=== PATIENT | male | born 1975 | race Caucasian/White ===

== ENCOUNTER → 2017-12-23 15:16 | Outpatient (CLI) | payer BC, SELFPAY ==
--- NOTE | 2017-12-23 15:20 | XR_ITS ---
EXAM: XR cervical spine 4V HISTORY: ITS.REASON: NECK PAIN ORDERING PHYSICIAN: Dangelo Dudley MD PATIENT AGE: 42 years COMPARISON: None FINDINGS: Normal alignment. No fracture or dislocation. No lytic or blastic change. No significant degenerative change. The disc spaces are preserved. IMPRESSION: Negative cervical spine
--- NOTE | 2017-12-23 15:20 | XR_ITS ---
EXAM: XR lumbar spine min 4V HISTORY: ITS.REASON: LBP W/O SCIATICA ORDERING PHYSICIAN: Dangelo Dudley MD PATIENT AGE: 42 years COMPARISON: None FINDINGS: Normal alignment. No fracture or dislocation. No lytic or blastic change. Small anterior osteophytes are present at L3 and L4. The disc spaces are preserved. IMPRESSION: Minimal degenerative change, no acute finding.
== END ==
PROVIDERS: PCP Family Medicine; Visit Provider Family Medicine
DX: M54.5 Low back pain (principal); M54.2 Cervicalgia
CPT/HCPCS: 72050; 72110

== ENCOUNTER → 2018-01-15 10:25 | Outpatient (CLI) | payer BC, SELFPAY ==
--- NOTE | 2018-01-15 10:30 | MR_ITS ---
MR lumbar spine wo con, MR 3-d myelogram/MRCP Ordering Physician: Chayito Shipman Patient Age: 42 years: Male HISTORY: ITS.REASON: LOW BACK PAIN WITH SCIATICA Patient with sporadic low back pain. Low back pain midline bilateral leg. Right leg numbness and tingling to big toe. Symptoms one year.. . Prior history of ureteral calculus on right 2015 TECHNIQUE: MRI lumbar spine without contrast Sagittal STIR, T1, T2, axial T1 and T2. On 1.5T Siemens wide bore MRI. 3-D MR myelogram image set obtained & performed on MRI workstation. Additional sagittal thin section T2 weighted dataset obtained from this latter acquisition as well (---76 CPT) COMPARISON : CT abdomen and pelvis January 2015 5 view lumbar spine series December 23, 2017 FINDINGS The vertebral bodies are intact with no compression fracture or lesion. Exploratory laparoscopy the disc spaces are well hydrated well-maintained throughout.. No prominent disc protrusion or disc herniation L5/S1. Disc intact. Normal. Facets intact with slightly generous facets bilateral L4/5. Disc intact facets intact with only minor L4/5 disc spaces well-maintained L3/4 disc intact. Underlying modest AP dimension the neural foramen with slightly generous disc contour towards foramen but no significant bulge or protrusion L2/3 disc intact. Unremarkable.. L1/2 disc intact T12/L1 disc intact... T11/ 12 disc intact 3-D MRI myelogram image set appears satisfactory . No significant epidural indentation Symmetrical appearance nerve root sleeves IMPRESSION: ...... Negative MRI lumbar spine. No disc herniation.. No significant appearing disc bulge or protrusion . Only note perhaps slight Modest AP dimension neuroforamen at L3/4.- However extending nerve roots sleeves appear satisfactory bilaterally
--- NOTE | 2018-01-15 10:30 | MR_ITS ---
MR cervical spine wo con Ordering Physician: Chayito Shipman Patient Age: 42 years: Male HISTORY: ITS.REASON: NECK PAIN Neck pain. Arm pain left arm and hand pain. Numbness. Tingling. Symptoms several years. TECHNIQUE: Sagittal STIR, T1, T2, axial T1 and T2. On 1.5T Siemens wide bore MRI. 3-D MR myelogram image set obtained & performed on MRI workstation. Additional sagittal thin section T2 weighted dataset obtained from this latter acquisition as well (---76 CPT) COMPARISON :Five-view cervical spine series from 12/23/2017. FINDINGS Cranial cervical junction is WNL- slightly AP volume but adequate at 14.5 mm mm at the level of C1 C2/3 disc intact C3/4. Overall appears satisfactory. There may be some scant early posterior ridging and generous disc contour of but overall appears intact, WNL. C4/5, C5 C6 C6/7 disc intact and unremarkable well-hydrated. Neural foramen widely patent. Vertebral bodies with normal alignment and intact. . 3-D MRI myelogram image set appears normal. Nerve root sleeves a satisfactory at all levels.. No significant epidural indentation upon thecal sac IMPRESSION: Overall Negative C-spine MR. C-spine intact with no significant findings.
== END ==
PROVIDERS: PCP Nurse Practitioner; Visit Provider Nurse Practitioner
DX: M54.2 Cervicalgia (principal); M54.5 Low back pain
CPT/HCPCS: 72141; 72148; 76376

== ENCOUNTER 2019-02-03 11:32 | Outpatient (CLI) | payer BC, SELFPAY ==
[2019-02-03 11:44] VITALS: BMI 30.7
[2019-02-03 12:09] LABS: Basophils # 0.1 K/mm3 (0-0.2); Basophils % 0.8 % (0.1-2.0); Eosinophils # 0.2 K/mm3 (0.0-0.4); Eosinophils % 3.4 % (0.1-12.0); Hematocrit 38.6 % (42.0-52.0); Hemoglobin 12.8 g/dL (14.1-18.0); Lymphocytes # 1.8 K/mm3 (0.7-4.5); Lymphocytes % 27.9 % (10-50); Mean Corpuscular Hemoglobin 28.8 pg (27.0-31.2); Mean Corpuscular Volume 87.1 fl (80-94); Mean Platelet Volume 7.7 fl (7.4-10.4); Monocytes # 0.5 K/mm3 (0.1-1.0); Monocytes % 7.1 % (1.7-9.3); Neutrophils # 3.8 K/mm3 (1.8-7.8); Neutrophils % 60.8 % (37.0-80.0); Platelet Count 370 K/mm3 (142-424); Red Blood Count 4.43 M/mm3 (4.60-6.20); Red Cell Distribution Width 13.6 % (11.5-17.5); White Blood Count 6.3 K/mm3 (4.8-10.8)
[2019-02-03 12:10] VITALS: BP 112/74; PULSE 72; RESP 20; TEMP 36.9; O2SAT 98
[2019-02-03 12:36] LABS: Alanine Aminotransferase 75 U/L (12-78); Albumin Level 3.9 gm/dL (3.4-5.0); Alkaline Phosphatase 121 U/L (46-116); Anion Gap 11.5 mEq/L (5-15); Aspartate Amino Transferase 36 U/L (15-37); Bilirubin,Total 0.4 mg/dL (0.2-1.0); Blood Urea Nitrogen 16 mg/dL (7-18); CKMB Relative Index 0.9 U/L (0-4.0); Calcium 9.4 mg/dL (8.5-10.1); Carbon Dioxide 29 mmol/L (21.0-32.0); Chloride 99 mmol/L (98-107); Chol/HDL Ratio 2.6 (1-3.5); Cholesterol 172 mg/dL (140-200); Creatine Kinase 120 U/L (39-308); Creatine Kinase MB 1.1 ng/ml (0.0-3.6); Creatinine Clearance Estimated 121 mL/min (50-200); Creatinine,Serum 1.26 mg/dL (0.70-1.30); Estimated Glomerular Filt Rate 62 ml/min (>60); GFR (African American) 75 ML/MIN (>60); Globulin 3.8 gm/dl (1.3-3.2); Glucose 109 mg/dL (74-106); HDL Cholesterol 65 mg/dL (27-67); LDL Cholesterol 93 mg/dL (0-130); Potassium 3.5 mmoL/L (3.5-5.1); Sodium 136 mmol/L (136-145); T4 (Thyroxine) 9.1 ug/dl (4.7-13.3); Thyroid Stimulating Hormone 2.41 uIU/ml (0.358-3.740); Total Protein,Serum 7.7 gm/dL (6.4-8.2); Triglycerides 72 mg/dL (30-200); Troponin I < 0.02 ng/ml (0.00-0.06); VLDL Cholesterol 14 mg/dL (0-40)
[2019-02-03 12:45] VITALS: BP 125/84; PULSE 68; RESP 20; TEMP 36.9; O2SAT 95
[2019-02-03 13:15] VITALS: BP 125/87; PULSE 68; RESP 20; TEMP 37.1; O2SAT 95
--- NOTE | 2019-02-03 16:35 | XR_ITS ---
PROCEDURE: XR CHEST 2V CLINICAL HISTORY: elevated alk phos COMPARISON: No exams were available for comparison FINDINGS: The cardiomediastinal silhouette and pulmonary vascularity are within normal limits. The lungs are clear without infiltrates, suspicious nodules, or pleural effusions. No acute bony abnormalities. IMPRESSION: No acute findings. Dictated by: Vignesh Keyes MD 02/03/2019 17:15 Electronically signed by Vignesh Keyes MD in [place] 02/03/2019 17:15
== END 2019-02-03 13:15 | disposition home or self-care (01) ==
PROVIDERS: PCP Emergency Medicine; Visit Provider Nurse Practitioner Family
DX: E86.0 Dehydration (principal); R74.8 Abnormal levels of other serum enzymes
CPT/HCPCS: 71046; 80053; 80061; 82550; 82553; 84436; 84443; 84484; 85025; 96360; 96375; J2405

== ENCOUNTER → 2019-05-04 15:30 | Outpatient (CLI) | payer BC, SELFPAY ==
[2019-05-04 20:41] LABS: Alanine Aminotransferase 80 U/L (21-72); Albumin Level 4.4 g/dL (3.4-5.0); Albumin/Globulin Ratio 1.6 (1.1-1.8); Alkaline Phosphatase 97 U/L (46-116); Anion Gap 13.1 mEq/L (5-15); Aspartate Amino Transferase 32 U/L (15-37); Bilirubin,Total 0.4 mg/dL (0.2-1.0); Blood Urea Nitrogen 15 mg/dL (7-18); Calcium 9.2 mg/dL (8.5-10.1); Carbon Dioxide 29 mmol/L (21.0-32.0); Chloride 103 mmol/L (98-107); Creatinine,Serum 1.19 mg/dL (0.70-1.30); Estimated Glomerular Filt Rate 66 ml/min (>60); GFR (African American) 80 ML/MIN (>60); Globulin 2.7 gm/dl (1.3-3.2); Glucose 108 mg/dL (74-106); Potassium 4.1 mmoL/L (3.5-5.1); Sodium 141 mmol/L (137-145); Total Protein,Serum 7.1 g/dL (6.4-8.2)
[2019-05-05 17:07] LABS: Hemoglobin A1C 5.8 % (0.0-7.0)
== END ==
PROVIDERS: Physician Assistant; Visit Provider Nurse Practitioner Family
DX: R74.8 Abnormal levels of other serum enzymes (principal); R73.9 Hyperglycemia, unspecified
CPT/HCPCS: 36415; 80053; 83036

== ENCOUNTER → 2020-01-24 07:01 | Outpatient (CLI) | payer BC, SELFPAY ==
--- NOTE | 2020-01-24 07:02 | CA_ITS ---
APPROVED REPORT Exam: Exercise Treadmill Technologist: Kristie Diane Ht: 6 ft 4 in Wt: 261 lbs BSA: 2.48 m2 HR: 77 bpm BP: 143/91 mmHg Indications: Chest pain, Shortness of Air Medical History Medications: Amlodipine,,,,, Aspirin,,,,, Propranolol,,,,, Pravastatin,,,,, HCTZ,,,,, Albuterol,,,,, Esomeprazole,,,,, Stress Test Details Test: Roberto HR Resting HR: 84 bpm Max Heart Rate (APMHR): 175 bpm Max HR Achieved: 169 bpm Target HR (85% APMHR): 148 bpm % of APMHR: 96 Recovery HR: 104 bpm BP Resting BP: 143.0/91.0 mmHg Max BP: 175.0/85.0 mmHg Recovery BP: 142.0/88.0 mmHg ECG Clinical Exercise duration: 07:15 min Highest Stage Achieved: Exercise capacity: 10.1 METs Stress ECG Conclusion Resting ECG: Normal sinus rhythm, right axis deviation, ST-T abnormalities inferiorly ( possible strain pattern). Patient exercised 7:15 on Roberto Protocol. Test stopped due to shortness of air, fatigue. Symptoms: Burning chest discomfort. Arrhythmias/Ectopy: Rare PVC ST-T Changes: Exaggeration of baseline ST-T abnormalities inferiorly. 1mm horizontal ST depression laterally. Conclusion: Non-diagnostic GXT due to baseline EKG abnormalities. Myoview images reported separately. Test Summary . Standing . . . . . . Myoview Injected . . Stop exercise at 07:15 . . . . . . Electronically signed by : Abhilash Patel, 01/25/2020 05:44:12
--- NOTE | 2020-01-24 07:02 | CA_ITS ---
APPROVED REPORT EXAM: Comprehensive 2D, Doppler, and color-flow Echocardiogram Rental Sales Agent: Jacki Escobar RVT Ht: 6 ft 4 in Wt: 261lbs BSA: 2.48 BP: 149/99 mmHg Indications: CP,SOA,HTN,FAMILY HX 2D Dimensions LVOT 2.27 cm (M/F) 1.5-2.5 M-Mode Dimensions RVDd 3.10 cm (0.9-2.6) LA Diam 4.32 cm (1.9-4.0) LVDd 4.41 cm (3.5-5.7) Ao Diam 3.01 cm (2.0-3.7) LVDs 2.40 cm (3.5-5.7) IVSd 1.03 cm (0.6-1.1) PWd 0.97 cm (0.6-1.1) EF (Teich) 77.10% FS 45.60% EDV (Teich) 88.20 mL ESV (Teich) 20.20 mL LV Diastology E Decel Time 160.00 (160-240 msec) E/A Ratio 1.1 MED E' 9.40 (< 7 cm/sec) E'/MED E' Ratio 7.16 (>14) LAT E' 11.40 (<10 cm/sec) E/LAT E' Ratio 5.90 (>14) Mitral Valve MV E Max Jeffry. 67.00 (40-130 cm/s) MV A Velocity 63.00 (40-130 cm/s) E/A Ratio 1.06 MV Decel. Time 160.00 (160-240 ms) MV PHT 47.00 ms Pulmonary Valve PV Peak Velocity 69.00 (50-150 cm/s) Left Ventricle Left atrium is mildly enlarged, left ventricle is normal size, mild concentric left ventricular hypertrophy, visually estimated ejection fraction 55% with no regional wall motion abnormality, grade 1 diastolic dysfunction seen without tissue Doppler evidence of raise left atrial pressure. Right Ventricle Right atrium and right ventricle are mildly enlarged with normal contractility. Aortic Valve Aortic valve is minimally thickened and fibrosed, there is no aortic stenosis or aortic insufficiency. Mitral Valve Mitral valve is grossly normal, there is mild mitral regurgitation. Tricuspid Valve Tricuspid valve grossly normal, there is mild tricuspid regurgitation, tricuspid regurgitation jet velocity is inadequate for calculation of the right ventricular systolic pressure. Pulmonic Valve Pulmonic valve is poorly visualized. Great Vessels Aortic root is normal size. Pericardium No significant pericardial effusion noted. Conclusion 1. Mild biatrial enlargement, normal left ventricular size, mild concentric left ventricular hypertrophy, visually estimated ejection fraction 55% with no regional wall motion abnormality, grade 1 diastolic dysfunction seen without tissue Doppler evidence of raise left atrial pressure. 2. Mildly enlarged right ventricle with normal contractility. 3. Mild mitral and tricuspid regurgitation. 4. No significant pericardial effusion noted. Electronically signed by : Abhilash Patel, 01/25/2020 06:25:54
--- NOTE | 2020-01-24 07:02 | NM_ITS ---
APPROVED REPORT Exam: Nuclear Stress Test Indication: Chest pain, SOB, HTN, High cholesterol, Family history Patient Location: Outpatient Stress Tech: Kristie Diane AK Tech:Vero Hartman, ARRT, RT (R)(N) Ht: 6 ft 4 in Wt: 260 lbs HR: 77 bpm BP: 143/91 mmHg BSA: 2.48 m2 BMI: 31.6 History: Chest pain, SOB, HTN, High cholesterol, Family history Procedure: Patient exercised on Roberto protocol 7:15 minutes and sec, resting heart rate 77 bpm, resting blood pressure 143/91 mmHg, with exercise maximum heart rate achived was 169 bpm which is 97 % of the maximum predicted heart rate and blood pressure was 175/85 mmHg. Test was stopped due to SO fatigue. Patient has Good exercise capacity, achieved 10.1 METs of workload on treadmill, the blood pressure response to exercise was Adequate. Electrocardiogram Resting electrocardiogram showed sinus rhythm nonspecific ST-T changes, with exercise there is additional millimeter ST segment depression noted from the baseline EKG. The EKG portion of the exercise is nondiagnostic due to baseline abnormal EKG. Cardiac Stress and Resting SPECT Images: Cardiac Stress and Resting SPECT images were obtained using technetium 99m Myoview 31.5 mCi stress and 10.74 mCi at rest. Gated SPECT for analysis of segmental wall motion and calculation of ejection fraction also done. Cardiac stress and resting SPECT images show uniform myocardial activity without segmental perfusion abnormality, computer derived ejection fraction is 52% with no regional wall motion abnormality, right ventricle is mildly enlarged with normal contractility. Conclusion: 1. The EKG portion of the exercise Myoview is nondiagnostic due to baseline abnormal EKG, patient has good exercise capacity achieved 10.1 mets of workload on treadmill, the blood pressure response to exercise was adequate, there was no exercise-induced chest discomfort. 2. No scintigraphic evidence of reversible ischemia seen, computer derived ejection fraction is 52% with no regional wall motion abnormality, right ventricle is mildly enlarged with normal contractility. 3. Normal exercise Myoview study. Electronically signed by : Abhilash Patel, 01/25/2020 06:03:20
--- NOTE | 2020-01-24 08:41 | HMH.ITSHM ---
Current Home Medications as stated by this patient Devin López or enrollment eligibility representative. []HCTZ ASA PRAVASTATIN ALBUTEROL AMLODIPINE ESOMEPRAZOLE
== END ==
PROVIDERS: PCP Nurse Practitioner Family; Visit Provider Physician Assistant
DX: R07.9 Chest pain, unspecified (principal); R06.00 Dyspnea, unspecified; I10 Essential (primary) hypertension
CPT/HCPCS: 78452; 93017; 93306; A9502

== ENCOUNTER → 2020-02-01 07:56 | Outpatient (CLI) | payer BC, SELFPAY ==
--- NOTE | 2020-02-01 07:56 | CA_ITS ---
APPROVED REPORT Petroleum Geologist: Jacki Escobar RVT Study Quality: Good Indications: HTN Risk Factors Hypertension Renal Artery Doppler Proximal (R) 99.2/ cm/sec Mid (R) 95.8/ cm/sec Distal (R) 76.7/ cm/sec Renal Aorta Ratio (R) 1.06 Segmental A. (R) 49.9/19.8 cm/sec RI: 0.60 Segmental A. Sup (R) 49.9/19.8 cm/sec Segmental A. Mid (R) 40.4/13.8 cm/sec Segmental A. Inf (R) 31.9/9.6 cm/sec Origin (L) 108.8/ cm/sec Proximal (L) 142.5/ cm/sec Mid (L) 126.5/ cm/sec Distal (L) 67.3/ cm/sec Renal Aorta Ratio (L) 1.51 Segmental A. (L) 46.2/19.1 cm/sec RI: 0.58 Segmental A. Sup (L) 45.7/15.6 cm/sec Segmental A. Mid (L) 46.2/19.1 cm/sec Segmental A. Inf (L) 33.6/11.5 cm/sec Renal Measurements Kidney Size (R) 11.8x7.1 cm Cortical Thickness (R) 2.1 cm Kidney Size (L) 11.4x6.6 cm Cortical Thickness (L) 1.9 cm Findings Study suggests no evidence of stenosis of the bilateral renal arteries. Conclusion Study suggests no evidence of stenosis of the bilateral renal arteries. Electronically signed by : Vignesh Keyes MD 02/01/2020 16:53:25
== END ==
PROVIDERS: PCP Nurse Practitioner Family; Visit Provider Internal Medicine Cardiovascular Disease
DX: I10 Essential (primary) hypertension (principal)
CPT/HCPCS: 93976

== ENCOUNTER → 2020-02-23 11:06 | Outpatient (CLI) | payer BC, SELFPAY ==
[2020-02-23 12:32] LABS: Chloride 100 mmol/L (98-107); Sodium 139 mmol/L (136-145)
[2020-02-23 12:33] LABS: Potassium 4.7 mmoL/L (3.5-5.1)
[2020-02-23 12:36] LABS: Anion Gap 12.7 mEq/L (5-15); Blood Urea Nitrogen 17 mg/dl (9-20); Calcium 9.5 mg/dl (8.4-10.2); Carbon Dioxide 31 mmol/L (22.0-30.0); Estimated Glomerular Filt Rate 65 ml/min (>60); GFR (African American) 79 ML/MIN (>60); Glucose 104 mg/dl (74-100)
== END ==
PROVIDERS: Visit Provider Internal Medicine Cardiovascular Disease
DX: R06.02 Shortness of breath (principal); R60.0 Localized edema; E78.2 Mixed hyperlipidemia; I10 Essential (primary) hypertension; G47.33 Obstructive sleep apnea (adult) (pediatric)
CPT/HCPCS: 36415; 80048

== ENCOUNTER → 2021-04-29 15:06 | Outpatient (CLI) | payer BC, OTHER, SELFPAY ==
[2021-04-29 18:13] LABS: Basophils # 0.2 K/mm3 (0-0.2); Basophils % 2.4 % (0.1-2.0); Eosinophils # 0.3 K/mm3 (0.0-0.4); Eosinophils % 4.6 % (0.1-12.0); Hematocrit 50.6 % (42.0-52.0); Hemoglobin 16.3 g/dL (14.1-18.0); Lymphocytes # 1.9 K/mm3 (0.7-4.5); Lymphocytes % 27.5 % (10-50); Mean Corpuscular HGB Conc 32.3 g/dL (31.8-35.4); Mean Corpuscular Hemoglobin 31.2 pg (27.0-31.2); Mean Corpuscular Volume 96.6 fl (80-94); Mean Platelet Volume 7.5 fl (7.4-10.4); Monocytes # 0.4 K/mm3 (0.1-1.0); Monocytes % 6.6 % (1.7-9.3); Platelet Count 287 K/mm3 (142-424); Red Blood Count 5.24 M/mm3 (4.60-6.20); Red Cell Distribution Width 13.6 % (11.5-17.5); White Blood Count 6.7 K/mm3 (4.8-10.8)
[2021-04-29 18:47] LABS: 25-OH Vitamin D, Total 47.1 ng/mL (30-100)
[2021-04-29 18:50] LABS: Alanine Aminotransferase 119 U/L (12-78); Albumin Level 4.9 g/dl (3.5-5.0); Alkaline Phosphatase 91 U/L (38-126); Anion Gap 12.9 mEq/L (5-15); Aspartate Amino Transferase 70 U/L (17-59); Bilirubin,Total 0.9 mg/dl (0.2-1.3); Blood Urea Nitrogen 15 mg/dl (9-20); Calcium 9.6 mg/dl (8.4-10.2); Carbon Dioxide 29 mmol/L (22.0-30.0); Chloride 100 mmol/L (98-107); Cholesterol 212 mg/dl (140-200); Estimated Glomerular Filt Rate 80 ml/min (>60); GFR (African American) 97 ML/MIN (>60); Globulin 2.4 g/dL (1.3-3.2); Glucose 92 mg/dl (74-100); HDL Cholesterol 71 mg/dl (40-60); Potassium 3.9 mmoL/L (3.5-5.1); Sodium 138 mmol/L (136-145); Total Protein,Serum 7.3 g/dl (6.3-8.2); Triglycerides 148 mg/dl (30-150); VLDL Cholesterol 30 mg/dL (0-40)
[2021-04-29 19:01] LABS: Direct LDL Cholesterol 115.15 mg/dL (100-129)
[2021-04-29 19:20] LABS: Thyroid Stimulating Hormone 3.47 uIU/mL (0.465-4.68)
[2021-04-30 19:19] LABS: Prostate Specific Ag Screen 0.7 ng/ml (0.0-4.0)
== END ==
PROVIDERS: PCP Emergency Medicine; Visit Provider Emergency Medicine
DX: I10 Essential (primary) hypertension (principal); E78.5 Hyperlipidemia, unspecified; R60.0 Localized edema; E55.9 Vitamin D deficiency, unspecified
CPT/HCPCS: 80053; 80061; 82306; 84443; 85025; G0103

== ENCOUNTER 2021-07-20 09:49 | Emergency (ER) | payer BC, OTHER, SELFPAY ==
[2021-07-20 09:50] VITALS: BP 139/105; PULSE 67; RESP 18; TEMP 36.8; O2SAT 100; BMI 31.6
[2021-07-20 10:00] VITALS: BMI 31.6
--- NOTE | 2021-07-20 10:19 | XR_ITS ---
PROCEDURE INFORMATION: Exam: XR Right Hand Exam date and time: 07/20/2021 10:50 AM Age: 45 years old Clinical indication: Injury or trauma; Puncture; Finger; Right; Patient HX: Nail in patients thumb yesterday he pulled it out, but has pain and swelling today. ; Additional info: Poss fb TECHNIQUE: Imaging protocol: XR Right hand. Views: 3 or more views. COMPARISON: No relevant prior studies available. FINDINGS: Bones/joints: No evidence of an acute fracture or dislocation. IP joints suboptimally evaluated due to flexion. Soft tissues: No evidence of a radiopaque foreign body. Soft tissue swelling. IMPRESSION: No evidence of an acute fracture or radiopaque foreign body.
--- NOTE | 2021-07-20 10:35 | HMH.EDUTC ---
[facility] Disposition Clinical Impression: Puncture wound Disposition: Home, Self-Care Condition on Discharge: Good Instructions: DI for Puncture Wound, Cephalexin Additional Instructions: Seek care immediately if: You have severe pain. You have numbness or tingling in the area of your wound. Your wound starts bleeding and does not stop, even after you apply pressure. Call your doctor if: You have new drainage or a bad odor coming from the wound. You have a fever or chills. You have increased swelling, redness, or pain. You have red streaks on your skin coming from your wound. You have questions or concerns about your condition or care. Care for your wound as directed: Keep your wound clean and dry. carefully wash the wound with soap and water. Dry the area Rest and elevate the injured area above the level of your heart as often as you can. This will help decrease swelling and pain. Prop your injured area on pillows or blankets to keep it elevated comfortably. Return immediately if any drainage, streaks or worsening of swelling Follow up with your Family Doctor if no improvement or any worsening of symptoms Straight to ER if any life threatening symptoms Take medication as prescribed Prescriptions: cephALEXin [cephALEXin 500mg capsule*] 500 mg PO QID 7 Days #28 cap Transmission Status: Pending to [facility] Referrals: Santos Packer MD [Primary Care Provider] - As needed Time of Disposition: 11:13 Medical Decision Making - Elvin Inquiry Pt receiving controlled substance: No Elvin was queried for this patient: No Vital Signs: 07/20/21 09:50 Temperature 98.3 F Temperature Source Oral Pulse Rate [Left Brachial] 67 Respiratory Rate 18 Blood Pressure [Left Arm] 139/105 H Blood Pressure Mean [Left Arm] 116 Blood Pressure Source [Left Arm] Automatic Cuff Blood Pressure Position [Left Arm] Sitting 02 Sat by Pulse Oximetry 100 Oxygen Delivery Method Room Air Orders (Tests/Meds): ED MEDICATIONS Discontinued Medications Generic Name Dose Route Start Last Admin Trade Name Freq PRN Reason Stop Dose Admin Tetanus/Reduced Diphtheria/Acell Pertussis 0.5 ml 07/20/21 10:01 07/20/21 10:05 Tet/Diphth/Pert-Adult 0.5ml Syringe IM 07/20/21 10:02 0.5 ml .ONCE ONE Administration ORDERS Category Date Time Status XR hand RT min 3V Stat Exams 07/20/21 10:19 Taken - Radiology Data #1 Image(s): Hand Image Reviewed: Yes I reviewed the patient's radiology image No FB or acute fracture noted [facility] HPI - General Stated complaint: ao 07/19 right thumb pain Time Seen by Provider: 07/20/21 10:35 Mode of Arrival: Ambulatory Source of Information: Patient Limitations: No Limitations Description of Symptoms (Recalled from Triage Doc. by RN): PATIENT REPORTS HE WAS WORKING ON TEARING DOWN A DECK YESTERDAY AND WAS JABBED IN RIGHT THUMB WITH A NAIL. HE STATES HE CONTINUED WORKING WITH HIS GLOVES ON, BUT THIS MORNING HIS THUMB IS VERY SWOLLEN WITH LIMITED ROM D/T SWELLING. HE IS NOT UP TO DATE WITH TDAP HEENT Symptoms (Recalled from RN notes): No Resp Symptoms (Recalled from RN notes): No Skin Symptoms (Recalled from RN notes): Yes MS Symptoms (Recalled from RN notes): Yes Functional Status (Recalled from RN notes): WNL - History of Present Illness Provider Complaint: Patient states that he was working tearing down a deck yesterday when a galvenized nail stuck him in his right thumb State that it went about an inch into his finger and he jerked it out State that he had gloves on and he continued working States that last night it got sore and started swelling State that this morning it was swollen and sore to the touch along with feeling like it hurt when he would bend the joint of his finger States that he was unsure of his last tetanus so he came in to get it checked - Related Data Home Medications Medication Instructions Recorded Confirmed aspirin 81 mg tablet,delayed 81
[2021-07-20 11:08] VITALS: BP 138/90; PULSE 67; RESP 18; TEMP 36.8; O2SAT 100
== END 2021-07-20 11:21 | disposition home or self-care (01) ==
PROVIDERS: Emergency Provider Nurse Practitioner; PCP Emergency Medicine
DX: T14.8XXA Other injury of unspecified body region, initial encounter (principal); I10 Essential (primary) hypertension; K21.9 Gastro-esophageal reflux disease without esophagitis; E78.5 Hyperlipidemia, unspecified; J45.909 Unspecified asthma, uncomplicated; Z79.51 Long term (current) use of inhaled steroids; Z79.52 Long term (current) use of systemic steroids; Z79.82 Long term (current) use of aspirin; Z79.899 Other long term (current) drug therapy; Z23 Encounter for immunization; Z82.49 Family history of ischemic heart disease and other diseases of the circulatory system; Z83.3 Family history of diabetes mellitus; Z87.442 Personal history of urinary calculi; W45.0XXA Nail entering through skin, initial encounter
CPT/HCPCS: 73130; 90471; 90715; 99213; G0463

== ENCOUNTER → 2022-03-06 01:45 | Outpatient (CLI) | payer BC, OTHER, SELFPAY ==
[2022-03-06 16:45] LABS: Adenovirus,PCR Not Detected (NotDetected); Coronavirus 229E Not Detected (NotDetected); Coronavirus NL63 Not Detected (NotDetected); Coronavirus OC43 Not Detected (NotDetected); Coronovirus HKU1,PCR Not Detected (NotDetected)
[2022-03-06 16:46] LABS: Bordetella Pertussis Not Detected (NotDetected); Chlamydophila Pneumoniae, PCR Not Detected (NotDetected); Coronavirus 19, PCR Not Detected (NotDetected); Human Metapneumovirus Not Detected (NotDetected); Influenza A, PCR Not Detected (NotDetected); Influenza AH1, PCR Not Detected (NotDetected); Influenza AH3,PCR Not Detected (NotDetected); Influenza B, PCR Not Detected (NotDetected); Mycoplasma Pneumoniae, PCR Not Detected (NotDetected); Parainfluenza 1, PCR Not Detected (NotDetected); Parainfluenza 2, PCR Not Detected (NotDetected); Parainfluenza 3, PCR Not Detected (NotDetected); Parainfluenza 4, PCR Not Detected (NotDetected); Respiratory Syncytial Virus Not Detected (NotDetected); Rhinovirus/Enterovirus Not Detected (NotDetected)
[2022-03-07 14:42] LABS: Influenza AH1, 2009 Detected (NotDetected)
== END ==
PROVIDERS: PCP Nurse Practitioner Family; Visit Provider Nurse Practitioner Family
DX: R05.9 Cough, unspecified (principal); J09.X2 Influenza due to identified novel influenza A virus with other respiratory manifestations
CPT/HCPCS: 87581; 87632; 87798; C9803; U0003; U0005

== ENCOUNTER → 2022-10-31 16:08 | Outpatient (CLI) | payer BC, SELFPAY | PROVIDERS: PCP Emergency Medicine; Visit Provider Emergency Medicine | DX: Z20.822 Contact with and (suspected) exposure to COVID-19 (principal) ==

== ENCOUNTER 2023-12-08 09:03 | Outpatient (CLI) | payer BC, SELFPAY ==
[2023-12-08 21:53] LABS: Basophils % 0.5 % (0.1-2.0); Eosinophils # 0.3 K/mm3 (0.0-0.4); Hematocrit 49.3 % (42.0-52.0); Hemoglobin 15.5 g/dL (14.1-18.0); Lymphocytes # 1.9 K/mm3 (0.7-4.5); Lymphocytes % 31.4 % (10-50); Mean Corpuscular HGB Conc 31.4 g/dL (31.8-35.4); Mean Corpuscular Hemoglobin 31.5 pg (27.0-31.2); Mean Corpuscular Volume 100.5 fl (80-94); Mean Platelet Volume 8.1 fl (7.4-10.4); Monocytes # 0.4 K/mm3 (0.1-1.0); Neutrophils # 3.5 K/mm3 (1.8-7.8); Neutrophils % 57.1 % (37.0-80.0); Platelet Count 267 K/mm3 (142-424); Red Blood Count 4.91 M/mm3 (4.60-6.20); Red Cell Distribution Width 13.8 % (11.5-17.5); White Blood Count 6.2 K/mm3 (4.8-10.8)
[2023-12-08 22:12] LABS: Alanine Aminotransferase 68 U/L (12-78); Albumin Level 4.2 g/dl (3.5-5.0); Albumin/Globulin Ratio 1.4 (1.1-1.8); Alkaline Phosphatase 89 U/L (38-126); Anion Gap 10.2 mEq/L (5-15); Aspartate Amino Transferase 45 U/L (17-59); Bilirubin,Total 0.9 mg/dl (0.2-1.3); Blood Urea Nitrogen 14 mg/dl (9-20); Calcium 9.6 mg/dl (8.4-10.2); Carbon Dioxide 29 mmol/L (22.0-30.0); Chloride 102 mmol/L (98-107); Chol/HDL Ratio 3.3 (1-3.5); Cholesterol 194 mg/dl (140-200); Estimated Glomerular Filt Rate 79 ml/min (>60); GFR (African American) 96 ML/MIN (>60); Globulin 2.9 g/dL (1.3-3.2); Glucose 100 mg/dl (74-100); HDL Cholesterol 59 mg/dl (40-60); Potassium 4.2 mmoL/L (3.5-5.1); Sodium 137 mmol/L (136-145); Total Protein,Serum 7.1 g/dl (6.3-8.2); Triglycerides 179 mg/dl (30-150); VLDL Cholesterol 36 mg/dL (0-40)
[2023-12-08 22:23] LABS: Direct LDL Cholesterol 95.87 mg/dL (100-129)
[2023-12-08 22:44] LABS: Prostate Specific Ag Screen 0.9 ng/ml (0.0-4.0); Thyroid Stimulating Hormone 2.23 uIU/mL (0.465-4.68)
[2023-12-10 08:41] LABS: Testosterone,Total 289 ng/dL (264-916)
[2023-12-18 19:09] LABS: Testosterone, Total, LC/MS 287 ng/dL (.)
== END 2023-12-08 23:59 | disposition home or self-care (01) ==
LOC: LAB.DROPOF 12-09 10:03
PROVIDERS: PCP Nurse Practitioner Family; Visit Provider Nurse Practitioner Family
DX: I10 Essential (primary) hypertension (principal); E78.2 Mixed hyperlipidemia; Z68.30 Body mass index [BMI] 30.0-30.9, adult
CPT/HCPCS: 80050; 80053; 80061; 82306; 84403; 84443; 85025; G0103

== ENCOUNTER 2023-12-21 15:14 | Outpatient (CLI) | payer BC, SELFPAY ==
[2023-12-23 08:22] LABS: Testosterone,Total 190 ng/dL (264-916)
== END 2023-12-21 23:59 | disposition home or self-care (01) ==
LOC: LAB 15:15
PROVIDERS: PCP Nurse Practitioner Family; Visit Provider Nurse Practitioner Family
DX: R53.82 Chronic fatigue, unspecified (principal)
CPT/HCPCS: 36415; 84403

== ENCOUNTER 2024-08-11 14:20 | Outpatient (CLI) | payer BC, SELFPAY ==
[2024-08-11 14:45] LABS: Basophils % 0.6 % (0.1-2.0); Eosinophils # 0.3 Kmm3 (0.0-0.4); Eosinophils % 4.7 % (0.1-12.0); Hematocrit 45.6 % (42.0-52.0); Hemoglobin 15.5 g/dL (14.1-18.0); Immature Granulocytes # 0.01 10^3uL; Immature Granulocytes % 0.2 %; Lymphocytes # 1.8 K/mm3 (0.7-4.5); Lymphocytes % 27.2 % (10-50); Mean Corpuscular Volume 91.2 fl (80-94); Mean Platelet Volume 8.9 fl (7.4-10.4); Monocytes # 0.6 K/mm3 (0.1-1.0); Monocytes % 8.9 % (1.7-9.3); Neutrophils # 3.9 K/mm3 (1.8-7.8); Neutrophils % 58.4 % (37.0-80.0); Nucleated Red Blood Cells # 0 10^3/uL; Nucleated Red Blood Cells % 0 %; Platelet Count 230 K/mm3 (142-424); Red Cell Distribution Width 12.9 % (11.5-17.5); Red Cell Distribution Width-SD 42.6 fL; White Blood Count 6.6 K/mm3 (4.8-10.8)
[2024-08-11 15:13] LABS: Alanine Aminotransferase 69 U/L (12-78); Albumin Level 4.6 g/dl (3.5-5.0); Albumin/Globulin Ratio 2.1 (1.1-1.8); Alkaline Phosphatase 107 U/L (38-126); Anion Gap 10.4 mEq/L (5-15); Aspartate Amino Transferase 42 U/L (17-59); Bilirubin,Total 0.7 mg/dl (0.2-1.3); Blood Urea Nitrogen 20 mg/dl (9-20); Calcium 9.2 mg/dl (8.4-10.2); Carbon Dioxide 30 mmol/L (22.0-30.0); Chloride 102 mmol/L (98-107); Chol/HDL Ratio 2.9 (1-3.5); Cholesterol 206 mg/dl (140-200); Estimated Glomerular Filt Rate 64 ml/min (>60); GFR (African American) 78 ML/MIN (>60); Globulin 2.2 g/dL (1.3-3.2); Glucose 107 mg/dl (74-100); HDL Cholesterol 71 mg/dl (40-60); Potassium 4.4 mmoL/L (3.5-5.1); Sodium 138 mmol/L (136-145); Total Protein,Serum 6.8 g/dl (6.3-8.2); Triglycerides 180 mg/dl (30-150); VLDL Cholesterol 36 mg/dL (0-40)
[2024-08-11 15:23] LABS: Direct LDL Cholesterol 107.15 mg/dL (100-129)
[2024-08-11 15:28] LABS: 25-OH Vitamin D, Total 46.6 ng/mL (30-100)
[2024-08-11 15:29] LABS: T4 (Thyroxine) 6.2 ug/dl (5.53-11.0)
[2024-08-11 15:42] LABS: Thyroid Stimulating Hormone 2.16 uIU/mL (0.465-4.68)
[2024-08-20 00:04] LABS: Testosterone, Total, LC/MS 351 ng/dL (.)
== END 2024-08-11 23:59 | disposition home or self-care (01) ==
LOC: LAB 14:21
PROVIDERS: PCP Nurse Practitioner Family; Visit Provider Nurse Practitioner Family
DX: G47.33 Obstructive sleep apnea (adult) (pediatric) (principal); E29.1 Testicular hypofunction; I10 Essential (primary) hypertension
CPT/HCPCS: 36415; 80053; 80061; 82306; 84403; 84436; 84443; 85025

== ENCOUNTER 2025-01-30 15:20 | Outpatient (CLI) | payer BC, SELFPAY ==
--- OUTSIDE RECORDS SUMMARY | 2025-01-30 15:22 | XMS_ITS | Referral Summary ---
Author Organization [facility] ([place], [place], [place], [place], [place]) Address [address] [place] [address] Care Team Providers Care Automotive Specialty Technician Name Role Phone Unavailable Primary Care Provider Unavailabl e Social History Tobacco Use Types Packs/Day Years Used Date Smoking Tobacco: Never Assessed Sex and Gender Information Value Date Recorded Sex Assigned at Not on file Legal Sex Male 2:05 PM CDT Gender Identity Not on file Sexual Orientation Not on file Plan of Treatment Not on file
--- OUTSIDE RECORDS SUMMARY | 2025-01-30 15:22 | XMS_ITS | Clinical Summary ---
Author Organization [facility] Address [address] [place] [address] Care Team Providers Care Chief Console Operator Name Role Phone Jed Dudley MD Primary Care Provider [phone] Allergies No known active allergies Medications amLODIPine-ellen zepril (LOTREL 5-20) 5-20 MG per capsule Take 1 capsule by mouth Daily. 10-20 mg Active pravastatin (PRAVACHOL) 20 MG tablet Take 20 mg by mouth Daily. Active hydrochlorothia zide (HYDRODIURIL) 12.5 MG tablet Take 12.5 mg by mouth Daily. Active aspirin 81 MG EC tablet Take 81 mg by mouth Daily. Active albuterol sulfate HFA 108 (90 Base) MCG/ACT inhalerIndicati ons:URI with cough and congestion,SOB (shortness of breath) Inhale 2 puffs Every 4 (Four) Hours As Needed for Wheezing. 6.7 g 11/02/2019 Active esomeprazole (nexIUM) 40 MG capsule Take 40 mg by mouth Daily. 09/16/2019 Active Sod Picosulfate-Mag Ox-Cit Acd 10-3.5-12 MG-GM -GM/160ML solution Take 350 mL by mouth Take As Directed for 1 dose. 350 mL 05/09/2024 Active Active Problems Problem Noted Date Diagnosed Date Cervical spondylosis without myelopathy 03/01/20 20 DDD (degenerative disc disease), cervical 2019 Hx of calcium pyrophosphate deposition disease ( CPPD) 03/01/2020 Calcific tendinitis 09/21/2018 HTN (hypertension) 09/20/2018 HLD (hyperlipidemia) 09/20/2018 GERD (gastroesophageal reflux disease) 9 Alcohol use 09/20/2018 Neck nodule 09/20/2018 Intractable pain 09/19/2018 Family History Medical History Relation Name Comments Diabetes Father Heart disease Father Neuropathy Father No Known Problems Mother Relation Name Status Comments Father Alive Mother Alive Social History Tobacco Use Types Packs/Day Years Used Date Smoking Tobacco: Some Days Smokeless Tobacco: Never Comments:1 per week Alcohol Use Standard Drinks/Week Comments Yes 0 (1 standard drink = 0.6 oz pure alcohol) drinks 8-10 beers a day about 5/7 days AUDIT-C Answer Date Recorded Frequency of Alcohol Consumption 4 or more times a week 09/20/2018 Average Number of Drinks 3 or 4 019 Frequency of Binge Drinking Weekly 03/2018 Abuse Screen Answer Date Recorded Unsafe at Home or Work/School Not on file Feels Threatened by Someone? Not on file 11/2022 Does Anyone Keep You from Co ntacting Others or Doint Things Outside the Home? Not on file 12/29/2022 Physical Sign of Abuse Present Not on file 1 Housing Stability Answer Date Recorded Current Living Arrangements Not on file 11/2022 Potentially Unsafe Housing Conditions Not on tuyet e 12/29/2022 Family and Community Support Answer Andrew e Recorded Help with Day-to-Day Activities Not on file 12/29/2022 Lonely or Isolated Not on file 12/29/2022 Employment Answer Date Recorded Do you want help finding or keeping work or a joanne b? Not on file 12/29/2022 Disabilities Answer Date Recorded Concentrating, Remembering, or Making Decisions Difficulty Not on file 12/29/2022 Doing Errands Independently Difficulty Not on fi le 12/29/2022 Education Answer Date Recorded Help with school or training? Not on file Preferred Language Not on file 12/29/2022 Sex and Gender Information Value Date Recorded Sex Assigned at Male 12/16/2019 7:10 AM EDT Legal Sex Male 11:07 AM EDT Gender Identity Male 12/16/2019 7:10 AM EDT Sexual Orientation Straight 12/16/2019 7: 10 AM EDT Last Filed Vital Signs Vital Sign Reading Time Taken Comments Blood Pressure 145/94 11/02/2019 1:37 PM EDT Pulse 94 11/02/2019 1:37 PM EDT Temperature 37.1 C (98.7 F) 12/01/2019 1:44 PM EDT Respiratory Rate 18 11/02/2019 1:37 PM EDT Oxygen Saturation 99% 11/02/2019 1:37 PM EDT Inhaled Oxygen Concentration - - Weight 117 kg (259 lb) 12/01/2019 1:44 PM EDT Height 195.6 cm (6' 5 ) 12/01/2019 1:44 PM EDT Body Mass Index 30.71 12/01/2019 1:44 PM EDT Plan of Treatment Health Maintenance Due Date Last Done Comments LIPID PANEL 1974 ANNUAL PHYSICAL 10/18/2018 HEPATITIS C SCREENING 10/18/2018 COLOGUARD 10/02/2019 COLON CANCER SCREENING 5 YEA R SIGMOIDOSCOPY 10/02/2019 CT COLONOGRAPHY 10/02/2019 FECAL OCCULT BLOOD TEST 10/02/2019 FIT Testing (1 year) 10/02/2019 Pneumococcal Vaccine 50+ (1 of 1 - PCV) 2024 ZOSTER VACCINE (1 of 2) 2024 INFLUENZA VACCINE 10/21/2024 01/04/2024, , 01/03/2022, Additional history exists TDAP/TD VACCINES (2 - Td or Tdap) 07/21/2031 022 COLONOSCOPY 05/17/2034 05/17/2024, 04/07/2019 COLORECTAL CANCER SCREENING 05/17/2034 Procedures Procedure Name Priority Date/Time Associated Diagnosis Comments SCANNED - COLONOSCOPY 05/17/2024 from Last 3 Months or Most Recently Relevant to Health Maintenance Results * Colonoscopy, Scan (05/17/2024) Denver Will MD CHART REVIEW TABS Final Res ult from Last 3 Months or Most Recently Relevant to Health Maintenance Insurance [facility] PPO Advance Directives * CPR (Attempt to Resuscitate) (Latest Code Status on File) Date Activated Date Inactivated Comments 09/20/2018 1:39 AM 09/21/2018 1:43 PM Question Answer Comments Code Status (Patient has no pulse and is not breathing): CPR (Attempt to Resuscitate) Medical Interventions (Patie nt has pulse or is breathing): Full Care Teams Chief Console Operator Relationship Specialty Start Date End Date Jed Dudley MD [address] [place] [address] PCP - General Family Medicine 12/01/19
--- OUTSIDE RECORDS SUMMARY | 2025-01-30 15:22 | XMS_ITS | Clinical Summary ---
Author Organization [employer] [facility] ([place], [place], [place], [place], [place]) Address [address] [place] [address] Care Team Providers Care Air Twist Operator Name Role Phone Unavailable Primary Care Provider [...]
--- OUTSIDE RECORDS SUMMARY | 2025-01-30 15:22 | XMS_ITS | Encounter Summary ---
Author Organization [employer] ([place], [place], [place], [place], [place]) Address [address] [place] [address] Care Team Providers Care Software Configuration Analyst Name Role Phone Unavailable Primary Care Provider Unavailabl e Encounter Details Date Type Department Care Team (Late st Contact Info) Description 04/20/2018 Transcribed Document [facility] Family Medicine [facility] [place] [address] ProviderPreeti MD [address], [place] [id number] Social History Tobacco Use Types Packs/Day Years Used Date Smoking Tobacco: Never Assessed Sex and Gender Information Value Date Recorded Sex Assigned at Not on file Legal Sex Male 2:05 PM CDT Gender Identity Not on file Sexual Orientation Not on file documented as of this encounter Miscellaneous Notes * [employer] Conversion Note - Preeti ProviderMD - 04/20/2018 4:49 PM [facility] ATTENDANT DATE OF SERVICE: 04/20/2018 SLEEP MEDICINE FOLLOWUP HISTORY OF PRESENT ILLNESS: Mr. López is seen in followup. Last seen here on February 10, 2018. A sleep study was done on February 24 and this showed moderate sleep apnea with an apnea-hypopnea index of 17.9 per hour. It also showed some periodic limb movements averaging 28 per hour. CPAP was prescribed using auto CPAP with a pressure range of 6-20 cm using a nasal pillow and heated humidifier and he has done very well with it. He reports that he is not snoring or stopping breathing in his sleep. No longer awakens with coughing or choking. He reports improvement in sleepiness and says he has more energy. He scores 10/24 in the Gardner Sleepiness Scale. He says that he still has some restless legs, but this is improved and he has not had any episodes of sleep paralysis which he had reported previously. He is having no trouble tolerating CPAP. OTHER MEDICAL PROBLEMS: Include hypertension, hyperlipidemia, and gastroesophageal reflux. REVIEW OF SYSTEMS: Otherwise negative. SOCIAL HISTORY: He has cut back on alcohol, now drinking about three to five drinks a day. He drinks about four caffeinated drinks a day. Does not smoke. MEDICATIONS: 1. Amlodipine. 2. Pantoprazole. 3. Pravastatin. 4. Aspirin. 5. Unisom. 6. Hydrochlorothiazide. PHYSICAL EXAMINATION: GENERAL: Mr. López is a pleasant man in no distress. VITAL SIGNS: Weight is up 5 pounds to 262 pounds with a body mass index of 31. Blood pressure 128/70, pulse 97, respirations 18, oxygen saturation 97%. HEAD AND NECK: Exam shows normal-appearing nasal mucosa without obstruction or bleeding. The oral exam shows a large tongue and a low-lying soft palate with a Mallampati class IV appearance. The skin around the nose and mouth was intact. MENTAL STATUS: He was awake, alert, cooperative, and appropriate mood and affect. ASSESSMENT: 1. Obstructive sleep apnea syndrome, doing well with CPAP. He is improved in many regards and is adequately compliant. 2. Restless legs syndrome. He has some persistence of this along with some periodic limb movements identified on his sleep test, but this is not interfering with sleep at this point. 3. Obesity. 4. Hypertension. 5. Hyperlipidemia. 6. Gastroesophageal reflux. RECOMMENDATIONS: 1. Continue with current CPAP treatment. 2. He is encouraged to lose weight. 3. We will plan to follow up in one year and as needed. Yuri Nguyen M.D. Dict: 04/20/2018 16:49:32 Trans: 04/20/2018 22:57:27 CC1: Yuri Nguyen M.D. CC2: Dr. Braden Dudley Electronically signed by [facility] Conversion [employer] Sales Manager [place] at 07/11/2022 5:21 PM CDT documented in this encounter Plan of Treatment Not on file documented as of this encounter Visit Diagnoses Not on filedocumented in this encounter
[2025-01-30 16:35] LABS: Hemoglobin A1C 5.5 % (4.0-6.0)
[2025-01-30 17:04] LABS: Cholesterol 184 mg/dl (140-200); HDL Cholesterol 62 mg/dl (40-60); Triglycerides 213 mg/dl (30-150)
[2025-02-01 09:14] LABS: Testosterone,Total 599 ng/dL (264-916)
== END 2025-01-30 23:59 | disposition home or self-care (01) ==
LOC: LAB 15:21
PROVIDERS: PCP Nurse Practitioner Family; Visit Provider Nurse Practitioner Family
DX: R73.03 Prediabetes (principal); R79.89 Other specified abnormal findings of blood chemistry
CPT/HCPCS: 36415; 80061; 83036; 84403